=== PATIENT | female | born 1965 | race Caucasian/White ===

== ENCOUNTER 2024-09-09 14:01 | Emergency (ER) | payer SELFPAY ==
[~2024-09-09] VITALS: Ht 154.9 cm; Wt 62.0 kg
[2024-09-09 14:18] VITALS: TEMP 97.4
[2024-09-09] MEDS: IBUPROFEN 600 MG TABLET PO ONE (15:12)
[2024-09-09] MEDS ORDERED: IBUP-1492 PO (16:05)
[2024-09-09 16:38] VITALS: BP 133/81; PULSE 81; RESP 19; O2SAT 99
== END 2024-09-09 16:40 | disposition home or self-care (01) ==
LOC: EMS 14:05
DX: S01.112A Laceration without foreign body of left eyelid and periocular area, initial encounter (principal); I10 Essential (primary) hypertension; W01.198A Fall on same level from slipping, tripping and stumbling with subsequent striking against other object, initial encounter; Y93.89 Activity, other specified; Y92.89 Other specified places as the place of occurrence of the external cause; Y99.8 Other external cause status
CPT/HCPCS: 99282; Z7502; Z7610